=== PATIENT | female | born 1955 | race Caucasian/White ===

== ENCOUNTER → 2024-10-02 | Outpatient (CLI) | payer MEDICARE ==
--- NOTE | 2024-10-02 11:33 | HMCIMG ---
US THYROID/NECK HISTORY: Goiter COMPARISON: None TECHNIQUE: Thyroid ultrasound study was performed. FINDINGS: Right thyroid lobe measures 3.2 x 1.5 x 1.4 cm. Left thyroid lobe measures 4.4 x 1.9 x 1 point cm. Right lower pole thyroid nodule is seen measuring 16 x 15 x 11 mm. There is left lower pole thyroid nodule measuring 16 x 13 x 13 mm. There is left midpole this is of thyroid cyst measuring 6 x 4 x 5 mm. IMPRESSION: 1. Bilateral thyroid nodules as described above. Six-month follow-up study is recommended. Findings are most likely related to goiter.
== END | disposition home or self-care (01) ==
LOC: RAH 09:47
PROVIDERS: ATTEND Internal Medicine
DX: E04.2 Nontoxic multinodular goiter (principal)
CPT/HCPCS: 76536

== ENCOUNTER → 2024-12-03 | Outpatient (CLI) | payer OTHER ==
--- NOTE | 2024-12-04 07:35 | HMCIMG ---
EXAM: CT Cardiac calcium scoring. CLINICAL HISTORY: Screening. TECHNIQUE: Thin collimated axial CT cardiac images were obtained. A CT scan is done according to ALARA (As Low As Reasonably Achievable). CONTRAST: None. COMPARISON: None provided. FINDINGS: Calcium Score: VESSEL Number of lesions Volume mm3 Equi. Mass/mg Calcium score LM 0 0 - 0 LAD 2 9.6 - 13.1 LCX 0 0 - 0 RCA 2 18.4 - 26.1 Total 4 28.0 - 39.2 IMPRESSION: The calcium score is 39.2. This corresponds to the 75th percentile. /[place]
== END | disposition home or self-care (01) ==
LOC: RAH 12:52 → EDUNIT# 13:30
PROVIDERS: ATTEND Internal Medicine
DX: Z13.6 Encounter for screening for cardiovascular disorders (principal)
CPT/HCPCS: 75571

== ENCOUNTER → 2025-05-21 | Outpatient (CLI) | payer MEDICARE ==
--- NOTE | 2025-05-22 06:05 | HMCIMG ---
EXAMINATION: ULTRASOUND OF THE THYROID. CLINICAL HISTORY: Non-toxic single thyroid nodule. COMPARISON: None. TECHNIQUE: Transverse and longitudinal images were obtained through both lobes and the isthmus of the thyroid. FINDINGS: The thyroid gland is normal in caliber with homogenous tissue echotexture. The right thyroid lobe measures 3.9 x 2.3 x 1.8 cm and the left thyroid lobe measures 4.1 x 1.2 x 1.5 cm in the craniocaudal, AP, and transverse dimensions respectively. The isthmus measures 0.3 cm in AP dimension. Right lobe: There is an isoechoic mixed solid cystic nodule that measures 1.9 x 2.0 x 1.3 cm at the lower pole (TR3). Left lobe: There is an isoechoic mixed solid cystic nodule that measures 1.5 x 1.4 x 1.6 cm at the mid/lower pole (TR2). There is an isoechoic mixed solid cystic nodule that measures 0.5 x 0.3 x 0.5 cm at the lower pole (TR2). No significantly enlarged lymph nodes. IMPRESSION: Nodules in both lobes of the thyroid. TI-RADS follow up recommendations: TR1: no FNA required TR2: no FNA required TR3: more than or equal to 1.5 cm follow up, more than or equal to 2.5 cm FNA follow up: 1, 3 and 5 years TR4: more than or equal to 1.0 cm follow up, more than or equal to 1.5 cm FNA follow up: 1, 2, 3 and 5 years TR5: more than or equal to 0.5 cm follow up, more than or equal to 1.0 cm FNA annual follow up for up to 5 years /[place]
== END | disposition home or self-care (01) ==
LOC: RAH 10:48
PROVIDERS: ATTEND Internal Medicine
DX: E04.2 Nontoxic multinodular goiter (principal)
CPT/HCPCS: 76536